=== PATIENT | male | born 1985 | race Two or more races ===

== ENCOUNTER 2018-09-29 09:57 | Emergency (ER) | payer MEDICAID ==
[~2018-09-29] VITALS: Ht 182.9 cm; Wt 86.2 kg
--- NOTE | 2018-09-29 10:00 | NUR ---
ED Nurse Note: BROUGHT IN BY [id number] DUE TO FULL BODY PAIN / X COUPLE DAYS. HX SCABIES PER PT. MULTIPLE SCABS SEEN ON THE BODY AND WOUND ON THE LEFT ANKLE.
[2018-09-29 10:05] VITALS: BP 128/86
[2018-09-29] MEDS ORDERED: Ketorolac 30mg Inj IM ONE (10:30)
[2018-09-29] MEDS ORDERED: PERMETHRIN60 GM TOPIC (10:51)
[2018-09-29] MEDS ORDERED: IBUPROFEN600 MG ORAL (10:51)
--- NOTE | 2018-09-29 11:17 | NUR ---
ED Nurse Note: MINI-COG WAS DONE 12/23. A/OX4. PT PROVIDED AN ADDRESS, [address] [place] [address]. TAB CARD, SANDWICH AND JUICE WERE PROVIDED FOR PT.
[2018-09-29 11:20] VITALS: BP 128/86
--- NOTE | 2018-09-30 06:41 | Emergency Room Report ---
History of Present Illness General Chief Complaint: General Complaint Source: Patient, EMS Present Illness HPI 32-year-old male presents ED for evaluation. Brought in by EMS for evaluation of generalized body pain for the last few days. Dull, 6 out of 10, nonradiating. Denies fevers or chills. Denies trauma. Denies sore throat cough. States he has scabies. Has had this previously. States that this is the cause of his pain. States that is also very itchy. No other aggravating relieving factors. Denies any other associated symptoms Allergies: Coded Allergies: SULFAMETHOXAZOLE (Verified Allergy, Unknown, 09/29/18) TRIMETHOPRIM (Verified Allergy, Unknown, 09/29/18) Patient History Past Medical History: none, psych hx Past Surgical History: none Pertinent Family History: none Social History: Denies: smoking, alcohol use, drug use Immunizations: UTD Reviewed Nursing Documentation: PMH: Agreed; PSxH: Agreed Nursing Documentation-PMH History Of Psychiatric Problem: Yes - AD[facility], schizoprenia Review of Systems All Other Systems: negative except mentioned in HPI Physical Exam Vital Signs Date Time Temp Pulse Resp B/P (MAP) Pulse Ox O2 Delivery O2 Flow Rate FiO2 09/29/18 09:57 97.3 86 16 128/86 97 Room Air Sp02 EP Interpretation: reviewed, normal General Appearance: no apparent distress, alert, GCS 15, non-toxic Head: normocephalic, atraumatic Eyes: bilateral eye normal inspection, bilateral eye PERRL ENT: hearing grossly normal, normal pharynx, no angioedema, normal voice Neck: full range of motion, supple/symm/no masses Respiratory: chest non-tender, lungs clear, normal breath sounds, speaking full sentences Cardiovascular #1: regular rate, rhythm, no edema Cardiovascular #2: 2+ carotid (R), 2+ carotid (L), 2+ radial (R), 2+ radial (L) , 2+ dorsalis pedis (R), 2+ dorsalis pedis (L) Gastrointestinal: normal bowel sounds, non tender, soft, non-distended, no guarding, no rebound Rectal: deferred Genitourinary: normal inspection, no CVA tenderness Musculoskeletal: back normal, gait/station normal, normal range of motion, non- tender Neurologic: alert, oriented x3, responsive, motor strength/tone normal, sensory intact, speech normal Psychiatric: judgement/insight normal, memory normal, mood/affect normal, no suicidal/homicidal ideation Reflexes: 3+ bicep (R), 3+ bicep (L), 3+ tricep (R), 3+ tricep (L), 3+ knee (R) , 3+ knee (L) Skin: other - diffuse linear excoriations to skin. nonerythematous base. no induration Lymphatic: no adenopathy Medical Decision Making Homeless Attestation I, The treating physician Dr. Benedict, has assessed and agrees that patient is medically stable for discharge to an outpatient disposition. Diagnostic Impression: Primary Impression: Scabies ER Course Hospital Course 32-year-old male presents to ED with rash Differential diagnoses include: Cellulitis, dermatitis, insect bite, abscess Clinical course Patient placed on stretcher. After initial history, physical exam reveals a male in no acute distress. On exam there are multiple linear excoriations noted to the legs arms and chest. Consistent with scabies. Discussed findings with patient. I'll prescribe permethrin. Given Toradol Homeless checklist completed. Safe for discharge with close patient follow up. We'll provide clinic referrals Diagnosis - scabies stable and discharged to home with prescription for elimite. Instructed to followup with PMD. Instructed return to ED if symptoms recur or worsen Last Vital Signs Date Time Temp Pulse Resp B/P (MAP) Pulse Ox O2 Delivery O2 Flow Rate FiO2 09/29/18 11:20 97.3 87 16 128/86 100 Room Air Status: improved Disposition: HOME, SELF-CARE Condition: Stable Scripts Ibuprofen* (MOTRIN*) 600 Mg Tablet 600 MG ORAL Q8H PRN for For Pain, #30 TAB 0 Refills Prov: Terence Benedict MD 09/29/18 Permethrin* (ELIMITE*) 60 Gm Cream..g. 1 APPLIC TOPIC ONCE, #60 GM 0 Refills Apply cream from head to toe; leave on for 8-14 hours before washing off with water; may reapply in 1 week if live mites appear. Prov: Terence Benedict MD 09/29/18 Referrals: [facility] Patient Instructions: Contact Precautions, [id number] Terence Benedict MD Sep 30, 2018 06:41
== END 2018-09-29 11:49 | disposition home or self-care (01) ==
LOC: EDBD 09:57 → EMR 10:30
DX: B86 Scabies (principal); F20.9 Schizophrenia, unspecified; Z88.2 Allergy status to sulfonamides
CPT/HCPCS: 96372; 99283; J1885